=== PATIENT | male | born 1965 | race Caucasian/White ===

== ENCOUNTER 2016-12-22 14:08 | Emergency (ER) | payer BC ==
[~2016-12-22] VITALS: Ht 177.8 cm; Wt 79.3 kg
[2016-12-22 14:19] VITALS: TEMP 36.9; Ht 177.8 cm; Wt 79.3 kg
[2016-12-22 14:47] LABS: BASO % 0.2 %; BASO ABS # 0.03 K/uL (0-0.2); COMPLETE YES; EOS % 0.1 %; HEMATOCRIT 44.5 % (42-52); IG% 0.5 %; LYMPH % 7.4 %; LYMPH ABS # 1.23 K/uL (1.2-3.4); MEAN CELL VOLUME 88.1 fL (80-100); MEAN CORPUSCULAR HEMOGLOBIN 29.9 pg (25-34); MEAN CORPUSCULAR HGB CONC 33.9 g/dl (32-36); MEAN PLATELET VOLUME 10.3 fL (7.4-10.4); MONO % 1.3 %; NEUT % 90.5 %; PLATELET COUNT 283 K/uL (130-400); RED BLOOD COUNT 5.05 M/uL (4.7-6.1); WHITE BLOOD COUNT 16.73 K/uL (4.8-10.8)
[2016-12-22] MEDS ORDERED: SODIUM CHLORIDE 0.9% 1000ML 1,000 ML IV STA ×2 (14:56)
[2016-12-22] MEDS ORDERED: ONDANSETRON 8 MG/54 ML D5W IV STA (14:58)
[2016-12-22] MEDS ORDERED: OPTIRAY 320 IV PRN (15:00)
[2016-12-22 15:01] LABS: BUN/CREATININE RATIO 16.8 (10-20); CREATININE 1.2 mg/dl (0.60-1.40)
[2016-12-22] MEDS ORDERED: CALC500C3 PO (15:21)
[2016-12-22] MEDS ORDERED: IMD/2 PO (15:21)
[2016-12-22] MEDS ORDERED: PRED10TA PO (15:21)
[2016-12-22] MEDS ORDERED: MULT-506 PO (15:21)
[2016-12-22] MEDS ORDERED: ONDA8TAB6 PO (15:21)
[2016-12-22] MEDS ORDERED: ACET-1311 PO (15:21)
[2016-12-22] MEDS ORDERED: DOXE50CA3 PO (15:21)
[2016-12-22] MEDS ORDERED: DOCU-94 PO (15:21)
[2016-12-22] MEDS ORDERED: IBUP-1050 PO (15:21)
[2016-12-22] MEDS ORDERED: DICY20TA35 PO (15:21)
[2016-12-22] MEDS ORDERED: DIPH1TAB PEG (15:21)
[2016-12-22] MEDS ORDERED: ATEN-175 PO (15:21)
[2016-12-22] MEDS ORDERED: PROM25TA9 PO (15:21)
[2016-12-22] MEDS ORDERED: METO50TA16 PO (15:21)
[2016-12-22] MEDS ORDERED: MELATAB2 PO (15:21)
--- NOTE | 2016-12-22 15:48 | DIAGNOSTIC IMAGING REPORT ---
CT OF THE ABDOMEN AND PELVIS WITH CONTRAST CLINICAL HISTORY: Right lower quadrant and suprapubic abdominal pain. History of ulcerative colitis. COMPARISON STUDY: None. TECHNIQUE: Following IV administration of 92 mL of Optiray-320, axial images of the abdomen and pelvis were obtained from the lung bases to the proximal femurs. Images were reviewed in the axial, sagittal, and coronal planes. IV contrast was administered without complication. CT DOSE: 316.42 mGy.cm FINDINGS: No pneumatosis, free air or portal venous gas is present. The liver, adrenal glands, right kidney and pancreas are normal. There are few calcified granulomas within the spleen. Note is made of a 4.8 cm cystic lesion within the upper pole of the left kidney. This lesion may contain a thin septation. The caliber and wall thickness of small and large bowel are normal. The appendix is normal. There is no evidence for a bowel obstruction. There is no free fluid or lymphadenopathy. There is no abscess. Skeletal structures are unremarkable. IMPRESSION: 1. No acute process within the abdomen or pelvis. 2. 4.8 cm cystic lesion arising from the upper pole of the left kidney. This may contain a thin septation. This is likely benign but a follow-up nonemergent MRI of the kidneys is recommended. Electronically signed by: Gabriel Hicks M.D. 12/22/2016 3:47 PM Dictated Date/Time: 12/22/2016 3:41 PM
[2016-12-22 15:57] LABS: MANUAL MICROSCOPIC REQUIRED? NO; REVIEW REQ? NO; URINE APPEARANCE CLEAR (CLEAR); URINE BILIRUBIN NEG (NEG); URINE COLOR YELLOW; URINE EPITHELIAL CELL AUTO 0-5 /lpf (0-5); URINE NITRITE NEG (NEG); URINE PH 5.5 (4.5-7.5); URINE SPECIFIC GRAVITY 1.022 (1.000-1.030); UROBILINOGEN NEG (NEG); ZZUR CULT IF INDIC CLEAN CATCH NO
[2016-12-22 18:46] VITALS: BP 138/86; PULSE 61; O2SAT 95
--- NOTE | 2016-12-22 22:46 | EMERGENCY ROOM VISIT NOTE ---
History Report prepared by Melissa: Ambar Yap Under the Supervision of: Dr. Kole Ramos M.D. First contact with patient: 14:41 Chief Complaint: ABDOMINAL PAIN Stated Complaint: ABD PAIN,HX OF ULCERATIVE COLITIS Nursing Triage Summary: Triage note: Pt reports hx of ulcerative colitis. pt reports "i had blood in my stool a few days ago." pt reports nausea and vomitting. pt reports diarrhea x 3 days. pt is currently at [facility] for per pt "spititual healing." pt reports he does not want any narcotics so he can return to [facility] History of Present Illness The patient is a 51 year old male who presents to the Emergency Room with complaints of worsening lower abdominal pain beginning today. The patient states that he has a history of ulcerative colitis. He notes that he has not had a flare up recently. He notes for the past 3 days he has had diarrhea. The patient also notes blood in his stool. The patient today has been experiencing nausea and vomiting episodes. He does note a few weeks ago being on Amoxicillin and today he began Prednisone. Pt denies LOC, headache, fevers, chills, diaphoresis, visual changes, neck pain, chest pain, breathing difficulties, back pain, melena, urinary symptoms, numbness, weakness, lymphadenopathy, rash, or other complaints. Source of History: patient Onset: today Position: abdomen (lower) Timing: worsening Associated Symptoms: + diarrhea, + nausea, + vomiting Review of Systems See HPI for pertinent positives and negatives. A total of ten systems were reviewed and were otherwise negative. Past Medical & Surgical Medical Problems: (1) Methamphetamine abuse (2) Ulcerative colitis Ulcerative colitis Family History Patient reports no known family medical history. Social History Smoking Status: Never Smoker Alcohol Use: none Marital Status: Housing Status: other ([facility] ) Occupation Status: unemployed Current/Historical Medications Scheduled Atenolol (Tenormin), 100 MG PO 0800 Calcium Carbonate (Tums), 500 MG PO DAILY Docusate Sodium (Colace), 1 CAP PO DAILY Loperamide Hcl (Imodium), 2 MG PO DAILY Melatonin (Melatonin Maximum Strengt), 1 TAB PO HS Metoprolol Tartrate (Lopressor) (Lopressor), 50 MG PO BID Multivitamin (Multivitamin), 1 TAB PO 0800 Prednisone (Prednisone), Unknown Dose PO DAILY Scheduled PRN Acetaminophen (Tylenol), 650 MG PO Q4 PRN for Pain Dicyclomine Hcl (Bentyl), 20 MG PO TID PRN for stomach cramps Diphenhydramine Hcl (Benadryl Allergy), 25 MG PEG Q6 PRN for ALLERGIC REACTION Doxepin (Sinequan), 50-100 MG PO HS PRN for Insomnia Ibuprofen (Advil), 200-600 MG PO Q4H PRN for Pain Ondansetron Hcl (Zofran), 8 MG PO TID PRN for Nausea or Vomiting Promethazine Hcl (Phenergan), 25 MG PO TID PRN for Nausea or Vomiting Allergies Coded Allergies: No Known Allergies (Unverified , 12/22/16) Physical Exam Vital Signs Date Time Temp Pulse Resp B/P Pulse Ox O2 Delivery O2 Flow Rate FiO2 12/22/16 18:46 61 16 138/86 95 12/22/16 16:28 69 18 135/83 96 12/22/16 15:15 71 12/22/16 14:19 36.9 66 18 156/78 95 Physical Exam GENERAL: Awake, alert, well-appearing, in no distress HENT: Normocephalic, atraumatic. Oropharynx unremarkable. EYES: Normal conjunctiva. Sclera non-icteric. NECK: Supple. No nuchal rigidity. FROM. No JVD. RESPIRATORY: Clear to auscultation. CARDIAC: Regular rate, normal rhythm. Extremities warm and well perfused. Pulses equal. ABDOMEN: Soft, non-distended. Suprapubic and right lower quadrant tenderness. Mild guarding. No rebound. No masses. RECTAL: Deferred. MUSCULOSKELETAL: Chest examination reveals no tenderness. The back is symmetrical on inspection without obvious abnormality. There is no CVA tenderness to palpation. No joint edema. LOWER EXTREMITIES: Calves are equal size bilaterally and non-tender. No edema. No discoloration. NEURO: Normal sensorium. No sensory or motor deficits noted. SKIN: No rash or jaundice noted. Medical Decision & Procedures ER Provider Diagnostic Interpretation: 1547: Radiology results as stated below per my review and radiologist interpretation CT OF THE ABDOMEN AND PELVIS WITH CONTRAST CLINICAL HISTORY: Right lower quadrant and suprapubic abdominal pain. History of ulcerative colitis. COMPARISON STUDY: None. TECHNIQUE: Following IV administration of 92 mL of Optiray-320, axial images of the abdomen and pelvis were obtained from the lung bases to the proximal femurs. Images were reviewed in the axial, sagittal, and coronal planes. IV contrast was administered without complication. CT DOSE: 316.42 mGy.cm FINDINGS: No pneumatosis, free air or portal venous gas is present. The liver, adrenal glands, right kidney and pancreas are normal. There are few calcified granulomas within the spleen. Note is made of a 4.8 cm cystic lesion within the upper pole of the left kidney. This lesion may contain a thin septation. The caliber and wall thickness of small and large bowel are normal. The appendix is normal. There is no evidence for a bowel obstruction. There is no free fluid or lymphadenopathy. There is no abscess. Skeletal structures are unremarkable. IMPRESSION: 1. No acute process within the abdomen or pelvis. 2. 4.8 cm cystic lesion arising from the upper pole of the left kidney. This may contain a thin septation. This is likely benign but a follow-up nonemergent MRI of the kidneys is recommended. Electronically signed by: Gabriel Hicks M.D. 12/22/2016 3:47 PM Dictated Date/Time: 12/22/2016 3:41 PM Laboratory Results 12/22/16 14:33 Red Blood Count 5.05, Mean Corpuscular Volume 88.1, Mean Corpuscular Hemoglobin 29.9, Mean Corpuscular Hemoglobin Concent 33.9, Mean Platelet Volume 10.3, Neutrophils (%) (Auto) 90.5, Lymphocytes (%) (Auto) 7.4, Monocytes (%) (Auto) 1.3, Eosinophils (%) (Auto) 0.1, Basophils (%) (Auto) 0.2, Neutrophils # (Auto) 15.16, Lymphocytes # (Auto) 1.23, Monocytes # (Auto) 0.22, Eosinophils # (Auto) 0.01, Basophils # (Auto) 0.03 12/22/16 14:33 Test 12/22/16 14:33 12/22/16 15:40 White Blood Count 16.73 K/uL (4.8-10.8) Red Blood Count 5.05 M/uL (4.7-6.1) Hemoglobin 15.1 g/dL (14.0-18.0) Hematocrit 44.5 % (42-52) Mean Corpuscular Volume 88.1 fL (80-100) Mean Corpuscular Hemoglobin 29.9 pg (25-34) Mean Corpuscular Hemoglobin Concent 33.9 g/dl (32-36) Platelet Count 283 K/uL (130-400) Mean Platelet Volume 10.3 fL (7.4-10.4) Neutrophils (%) (Auto) 90.5 % Lymphocytes (%) (Auto) 7.4 % Monocytes (%) (Auto) 1.3 % Eosinophils (%) (Auto) 0.1 % Basophils (%) (Auto) 0.2 % Neutrophils # (Auto) 15.16 K/uL (1.4-6.5) Lymphocytes # (Auto) 1.23 K/uL (1.2-3.4) Monocytes # (Auto) 0.22 K/uL (0.11-0.59) Eosinophils # (Auto) 0.01 K/uL (0-0.5) Basophils # (Auto) 0.03 K/uL (0-0.2) RDW Standard Deviation 46.6 fL (36.4-46.3) RDW Coefficient of Variation 14.3 % (11.5-14.5) Immature Granulocyte % (Auto) 0.5 % Immature Granulocyte # (Auto) 0.08 K/uL (0.00-0.02) Anion Gap 6.0 mmol/L (3-11) Est Creatinine Clear Calc Drug Dose 76.0 ml/min Estimated GFR () 81.2 Estimated GFR (Non- 70.1 BUN/Creatinine Ratio 16.8 (10-20) Calcium Level 9.0 mg/dl (8.5-10.1) Magnesium Level 2.0 mg/dl (1.8-2.4) Total Bilirubin 0.3 mg/dl (0.2-1) Direct Bilirubin 0.1 mg/dl (0-0.2) Aspartate Amino Transf (AST/SGOT) 19 U/L (15-37) Alanine Aminotransferase (ALT/SGPT) 23 U/L (12-78) Alkaline Phosphatase 90 U/L (45-117) Total Protein 8.2 gm/dl (6.4-8.2) Albumin 3.9 gm/dl (3.4-5.0) Lipase 363 U/L (73-393) Urine Color YELLOW Urine Appearance CLEAR (CLEAR) Urine pH 5.5 (4.5-7.5) Urine Specific [place] 1.022 (1.000-1.030) Urine Protein NEG (NEG) Urine Glucose (UA) NEG (NEG) Urine Ketones NEG (NEG) Urine Occult Blood TRACE (NEG) Urine Nitrite NEG (NEG) Urine Bilirubin NEG (NEG) Urine Urobilinogen NEG (NEG) Urine Leukocyte Esterase NEG (NEG) Urine WBC (Auto) 0 /hpf (0-5) Urine RBC (Auto) 0-4 /hpf (0-4) Urine Hyaline Casts (Auto) 0 /lpf (0-5) Urine Epithelial Cells (Auto) 0-5 /lpf (0-5) Urine Bacteria (Auto) NEG (NEG) Laboratory results reviewed by me Medications Administered Medications (Trade) Dose Ordered Sig/Elle Route Start Time Stop Time Status Last Admin Dose Admin Sodium Chloride 1,000 ml @ 999 mls/hr Q1H1M STAT IV 12/22/16 14:56 12/22/16 15:56 DC 12/22/16 15:16 999 MLS/HR Sodium Chloride (Nss 1000ml) 1,000 ml @ 125 mls/hr Q8H STAT IV 12/22/16 14:56 12/22/16 19:38 DC 12/22/16 16:28 125 MLS/HR Ondansetron HCl (Zofran 8mg Iv) 8 mg NOW STAT IV 12/22/16 14:58 12/22/16 15:00 DC 12/22/16 15:16 8 MG ED Course 1446: The patient was evaluated in room C9. A complete history and physical exam was performed. 1456: Sodium Chloride 1,000 ml @ 125 mls/hr IV, Sodium Chloride 1,000 ml @ 999 mls/hr IV, Zofran 8 mg IV. 1658: I reevaluated the patient. Waiting on GI consultation. 184: I spoke with Dr. Roberth LOUISE about the patient. He will follow up with the patient in the office this week. 185: I discussed with the patient the plan to follow up with Dr. Roberth RAMIREZ. 185: I reevaluated the patient. Discussed results and discharge instructions: He verbalized understanding and agreement. The patient is ready for discharge. Medical Decision Triage Nursing notes reviewed. The patient's presentation and history were concerning for abdominal pain. Etiologies such as inflammatory bowel disease,appendicitis, diverticulitis, obstruction, renal colic, PUD, biliary pathology, pancreatitis, mesenteric ischemia, aortic pathology, infections, genitourinary, UTI, perforated viscus, as well as others were entertained. The patient was evaluated. Saline hydration was administered. The patient wished to stay away from any pain medication because of past addiction problems. He noted some blood in stool. Stool culture and C. difficile testing was ordered but the patient was then able to provide a sample. His CBC revealed a mild leukocytosis. Urinalysis, chemistry panel, LFTs and lipase were negative. The patient has been on prednisone which may security leukocytosis. He underwent CT imaging and thankfully this did not reveal any significant colitis, appendicitis, or other emergent pathology. He did have a lesion on the left kidney. He was informed of this. Outpatient follow-up will be necessary. The patient was in agreement. The patient had a consultation with gastroenterology. I discussed the case with them. The will be available to see the patient in the office and felt it reasonable for him to restart his outpatient medication. The patient is unsure of his dose of sulfasalazine and would prefer to call his own design leader tomorrow to get the dose. He did not want anything for pain to go home with. The patient will follow-up with his primary physician and his design leader. If he is in the area for an extended period due to treatment he will follow-up with [place] gastro[facility]. If he worsens in any way he will comply. I did encourage him to have outpatient stool studies done as he was unable to provide a specimen here. I gave my usual and customary discussion regarding this issue. By the evaluation outlined above other emergent etiologies such as those listed in the differential, as well as others, were deemed relatively unlikely. The patient was informed about the findings as listed above. All questions were answered and he was pleased with the treatment. Return instructions were outlined and the patient was discharged in stable condition. The chart was completed utilizing [employer] voice recognition software. Grammatical errors, random word insertions, pronoun errors, and incomplete sentences are an occasional consequence of this system due to software limitations, ambient noise, and hardware issues. Any formal questions or concerns about the content, text, or information contained within the body of this dictation should be directly addressed to the physician for clarification. Consults Time Called: 1840 Consulting Physician: Dr. Roberth LOUISE Returned Call: [address] Roberth LOUISE about the patient. He will follow up with the patient in the office this week. Impression Primary Impression: Lower abdominal pain Additional Impression: Diarrhea Scribe Attestation The scribe's documentation has been prepared under my direction and personally reviewed by me in its entirety. I confirm that the note above accurately reflects all work, treatment, procedures, and medical decision making performed by me. Departure Information Dispostion Home / Self-Care Referrals No Doctor, Assigned (PCP) Forms Call Back Authorization, HOME CARE DOCUMENTATION FORM, IMPORTANT VISIT INFORMATION Patient Instructions My [facility] Additional Instructions A stool culture and stool analysis for C. difficile is recommended. This can be done as an outpatient at your treatment facility. Contact your GI doctor tomorrow to inquire about your sulfasalazine prescription and dosing. Acetaminophen(Tylenol) may be used for fever or pain. Use 1000mg every six hours as needed. Avoid using more than 4000mg in a 24 hour period. Rest and drink plenty of fluids as tolerated. Slow sips of water or sports drinks are recommended instead of large amounts all at once. Continue current medications. Once your stomach is settled start with a clear liquid diet (jello, soup broth, etc.) and then advance as tolerated. You should avoid full, heavy meals for about 24 hrs from the time your symptoms resolved. Return to the ER immediately for worsening or persistent abdominal pain, vomiting, fevers, chest pains, difficulty breathing, black or bloody stools, worsening of your condition, or as needed. Follow up with your primary physician and GI doctor when you return home for a recheck of your current condition. Call the offices tomorrow to set the appointments for after discharge. A follow-up left kidney MRI is necessary for further evaluation of the cyst like mass seen. If you're going to be at the treatment facility for an extended. You may follow -up with Dr. sanchez gastroenterology. Number is listed below. Problem Qualifiers
== END 2016-12-22 19:19 | disposition home or self-care (01) ==
LOC: C.EDB 14:12 → C.EDC 19:19
DX: R10.30 Lower abdominal pain, unspecified (principal); R19.7 Diarrhea, unspecified; D72.829 Elevated white blood cell count, unspecified; N28.9 Disorder of kidney and ureter, unspecified; Z87.19 Personal history of other diseases of the digestive system; Z79.899 Other long term (current) drug therapy